=== PATIENT | female | born 1945 | race Caucasian/White ===

== ENCOUNTER 2018-02-19 15:55 | Outpatient (CLI) | payer MEDICARE, OTHER ==
--- NOTE | 2018-02-20 12:56 | MRI Report ---
Procedure Date: 02/19/2018 Accession Number: [id number] / [id number] Procedure: MRI - Brain W/O CPT Code: FULL RESULT: EXAM: MRI BRAIN WITHOUT CONTRAST EXAM DATE: 02/19/2018 05:47 PM. CLINICAL HISTORY: 72-year-old with left-sided numbness COMPARISON: None. TECHNIQUE: Multiplanar, multisequence T1-weighted and fluid-sensitive MR sequences of the brain were performed. Sequences optimized for routine evaluation. Other: None. IV Contrast: None. FINDINGS: Brain Volume: Mild to moderate cortical volume loss. Parenchyma/Dura: No acute parenchymal hemorrhage, mass, or midline shift. There are old chronic lacunar infarct seen within bilateral cerebelli and right centrum semiovale. There is moderate bilateral areas of T2/FLAIR signal hyperintensity seen. No areas restricted diffusion seen to suggest acute infarct. There are areas of hemosiderin deposition seen within the central rony, left estela-rony, right cerebral peduncle, right temporal lobe, bilateral thalami, left cuneus region, and right parietal lobe. Ventricles/Cisterns: No hydrocephalus. No abnormal extra-axial fluid collection or hemorrhage. Orbits: Symmetric and unremarkable. Sella Turcica: The pituitary gland, cavernous sinuses, suprasellar cistern and optic chiasm are unremarkable. IAC: Symmetric and unremarkable. Vasculature: Normal signal flow void is seen in the major arterial structures at the skull base. Sinuses: No acute appearing sinus disease. Bones: No focal pathologic appearing marrow signal changes. Other: None. IMPRESSION: 1. No acute infarct, intracranial hemorrhage, mass, hydrocephalus, or midline shift. 2. Old chronic lacunar infarcts are seen within the right cerebellum, left cerebellum, and right centrum semiovale. 3. Moderate white matter changes seen that while nonspecific, most likely represent sequela of chronic small vessel ischemic disease. [facility] ADDENDUM: 02/20/18 12:58 IMPRESSION: 1. No acute infarct, intracranial hemorrhage, mass, hydrocephalus, or midline shift. 2. Old chronic lacunar infarcts are seen within the right cerebellum, left cerebellum, and right centrum semiovale. 3. Moderate white matter changes seen that while nonspecific, most likely represent sequela of chronic small vessel ischemic disease. 4. There are areas of hemosiderin deposition involving the brainstem and subdural white matter, as detailed above. Findings may represent microhemorrhages from hypertension or old hemorrhagic lacunar infarcts.
== END 2018-02-19 15:56 | disposition home or self-care (01) ==
LOC: DI 15:55
PROVIDERS: ATTEND Specialist
DX: R20.0 Anesthesia of skin (principal); G81.94 Hemiplegia, unspecified affecting left nondominant side
CPT/HCPCS: 70551